=== PATIENT | female | born 1970 | race Caucasian/White ===

== ENCOUNTER → 2019-09-22 14:55 | Outpatient (CLI) | payer MEDICARE, MEDICAID, SELFPAY ==
[2019-09-22 16:21] LABS: Basophils # 0.2 K/mm3 (0-0.2); Basophils % 1.7 % (0.1-2.0); Eosinophils # 0.5 K/mm3 (0.0-0.4); Eosinophils % 4.2 % (0.1-12.0); Hematocrit 46.7 % (37.0-47.0); Hemoglobin 15.8 g/dL (12.2-16.2); Lymphocytes # 2.9 K/mm3 (0.7-4.5); Lymphocytes % 24.5 % (10-50); Mean Corpuscular HGB Conc 33.8 g/dL (31.8-35.4); Mean Corpuscular Hemoglobin 31.9 pg (27.0-31.2); Mean Corpuscular Volume 94.3 fl (81-99); Mean Platelet Volume 9.1 fl (7.4-10.4); Monocytes # 0.6 K/mm3 (0.1-1.0); Monocytes % 4.9 % (1.7-9.3); Neutrophils # 7.5 K/mm3 (1.8-7.8); Neutrophils % 64.7 % (37.0-80.0); Platelet Count 391 K/mm3 (142-424); Red Blood Count 4.95 M/mm3 (4.20-5.40); Red Cell Distribution Width 14.1 % (11.5-17.5); White Blood Count 11.6 K/mm3 (4.8-10.8)
[2019-09-22 16:23] LABS: Chloride 103 mmol/L (98-107); Potassium 3.5 mmoL/L (3.5-5.1); Sodium 138 mmol/L (136-145)
[2019-09-22 16:25] LABS: Blood Urea Nitrogen 5 mg/dl (7-17); Estimated Glomerular Filt Rate 106 ml/min (>60); GFR (African American) 129 ML/MIN (>60)
[2019-09-22 16:26] LABS: Alanine Aminotransferase 15 U/L (12-78); Albumin Level 4.3 g/dl (3.5-5.0); Albumin/Globulin Ratio 1.3 (1.1-1.8); Alkaline Phosphatase 104 U/L (38-126); Anion Gap 11.5 mEq/L (5-15); Aspartate Amino Transferase 24 U/L (14-36); Bilirubin,Total 0.4 mg/dl (0.2-1.3); Calcium 10.2 mg/dl (8.4-10.2); Carbon Dioxide 27 mmol/L (22.0-30.0); Cholesterol 307 mg/dl (140-200); Globulin 3.2 g/dL (1.3-3.2); Glucose 73 mg/dl (74-100); HDL Cholesterol 48 mg/dl (40-60); Total Protein,Serum 7.5 g/dl (6.3-8.2); Triglycerides 452 mg/dl (30-150)
[2019-09-22 16:41] LABS: Free T4 (Free Thyroxine) 0.99 ng/dl (0.78-2.19)
[2019-09-22 16:42] LABS: Chol/HDL Ratio 6.4 (1-3.5)
[2019-09-22 22:35] LABS: Thyroid Stimulating Hormone 2.05 uIU/mL (0.465-4.68)
[2019-09-24 10:00] LABS: Vitamin D 25 Hydroxy 22.1 ng/mL (30.0-100.0)
== END ==
PROVIDERS: Visit Provider Emergency Medicine
DX: R53.83 Other fatigue (principal); E78.5 Hyperlipidemia, unspecified; E55.9 Vitamin D deficiency, unspecified
CPT/HCPCS: 80053; 80061; 82652; 84439; 84443; 85025

== ENCOUNTER → 2020-12-05 18:51 | Outpatient (CLI) | payer MEDICARE, BC, SELFPAY ==
[2020-12-05 20:46] LABS: Amphetamine/Metha Screen,Urine Negative ng/ml (<1000); Barbiturates Screen,Urine Negative ng/ml (<200)
[2020-12-05 20:49] LABS: Benzodiazepines Screen,Urine Negative ng/ml (<200)
[2020-12-05 20:50] LABS: Cannabinoid Screen,Urine Negative ng/ml (<50); Cocaine Screen,Urine Negative ng/ml (<300)
[2020-12-05 20:56] LABS: Methadone Screen,Urine Negative ng/ml (<300)
[2020-12-05 20:57] LABS: Opiate Screen,Urine Negative ng/ml (<300); Phencyclidine Screen,Urine Negative ng/ml (<25)
[2020-12-06 08:11] LABS: Chloride 102 mmol/L (98-107); Sodium 139 mmol/L (136-145)
[2020-12-06 08:12] LABS: Potassium 4.3 mmoL/L (3.5-5.1)
[2020-12-06 08:12] LABS: Basophils # 0.1 K/mm3 (0-0.2); Basophils % 1.3 % (0.1-2.0); Eosinophils # 0.2 K/mm3 (0.0-0.4); Eosinophils % 1.9 % (0.1-12.0); Hemoglobin 15.5 g/dL (12.2-16.2); Lymphocytes # 3.3 K/mm3 (0.7-4.5); Lymphocytes % 30.5 % (10-50); Mean Corpuscular HGB Conc 31.6 g/dL (31.8-35.4); Mean Corpuscular Volume 95.2 fl (81-99); Mean Platelet Volume 9.6 fl (7.4-10.4); Monocytes # 0.5 K/mm3 (0.1-1.0); Neutrophils # 6.6 K/mm3 (1.8-7.8); Neutrophils % 61.3 % (37.0-80.0); Platelet Count 423 K/mm3 (142-424); Red Blood Count 5.15 M/mm3 (4.20-5.40); Red Cell Distribution Width 15.2 % (11.5-17.5); White Blood Count 10.7 K/mm3 (4.8-10.8)
[2020-12-06 08:14] LABS: Alanine Aminotransferase 19 U/L (12-78); Albumin Level 4.3 g/dl (3.5-5.0); Albumin/Globulin Ratio 1.3 (1.1-1.8); Alkaline Phosphatase 116 U/L (38-126); Anion Gap 14.3 mEq/L (5-15); Aspartate Amino Transferase 28 U/L (14-36); Bilirubin,Total 0.2 mg/dl (0.2-1.3); Blood Urea Nitrogen 8 mg/dl (7-17); Carbon Dioxide 27 mmol/L (22.0-30.0); Cholesterol 241 mg/dl (140-200); Estimated Glomerular Filt Rate 105 ml/min (>60); GFR (African American) 128 ML/MIN (>60); Globulin 3.3 g/dL (1.3-3.2); Total Protein,Serum 7.6 g/dl (6.3-8.2)
[2020-12-06 08:15] LABS: Calcium 9.6 mg/dl (8.4-10.2); Chol/HDL Ratio 5.4 (1-3.5); Glucose 96 mg/dl (74-100); HDL Cholesterol 45 mg/dl (40-60)
[2020-12-06 08:16] LABS: Triglycerides 414 mg/dl (30-150)
[2020-12-06 08:26] LABS: Direct LDL Cholesterol 126.04 mg/dL (100-129)
[2020-12-06 08:45] LABS: Thyroid Stimulating Hormone 1.68 uIU/mL (0.465-4.68)
[2020-12-13 21:28] LABS: 1,25 Dihydroxy Vitamin D 65 pg/mL (.); 1,25-Dihydroxy, Vitamin D-2 36 pg/mL (.); 1,25-Dihydroxy, Vitamin D-3 29 pg/mL (.)
== END ==
PROVIDERS: Visit Provider Emergency Medicine
DX: M54.5 Low back pain (principal); R53.83 Other fatigue; E66.9 Obesity, unspecified; Z68.27 Body mass index [BMI] 27.0-27.9, adult; Z79.899 Other long term (current) drug therapy
CPT/HCPCS: 80053; 80061; 80305; 82652; 84436; 84443; 85025

== ENCOUNTER → 2021-02-01 18:05 | Outpatient (CLI) | payer MEDICARE, BC, SELFPAY ==
[2021-02-01 19:29] LABS: Barbiturates Screen,Urine Negative ng/ml (<200)
[2021-02-01 19:30] LABS: Amphetamine/Metha Screen,Urine Positive ng/ml (<1000)
[2021-02-01 19:31] LABS: Benzodiazepines Screen,Urine Negative ng/ml (<200); Cannabinoid Screen,Urine Negative ng/ml (<50)
[2021-02-01 19:32] LABS: Cocaine Screen,Urine Negative ng/ml (<300)
[2021-02-01 19:33] LABS: Methadone Screen,Urine Negative ng/ml (<300); Opiate Screen,Urine Negative ng/ml (<300)
[2021-02-01 19:34] LABS: Phencyclidine Screen,Urine Negative ng/ml (<25)
== END ==
PROVIDERS: Visit Provider Emergency Medicine
DX: Z79.899 Other long term (current) drug therapy (principal)
CPT/HCPCS: 80305

== ENCOUNTER → 2022-07-12 11:00 | Outpatient (CLI) | payer MEDICARE, BC, SELFPAY ==
[2022-07-12 19:38] LABS: Amphetamine/Metha Screen,Urine Negative ng/ml (<1000)
[2022-07-12 19:39] LABS: Barbiturates Screen,Urine Negative ng/ml (<200); Benzodiazepines Screen,Urine Negative ng/ml (<200)
[2022-07-12 19:40] LABS: Cannabinoid Screen,Urine Negative ng/ml (<50); Cocaine Screen,Urine Negative ng/ml (<300)
[2022-07-12 19:41] LABS: Methadone Screen,Urine Negative ng/ml (<300)
[2022-07-12 19:42] LABS: Opiate Screen,Urine Negative ng/ml (<300); Phencyclidine Screen,Urine Negative ng/ml (<25)
== END ==
PROVIDERS: PCP Nurse Practitioner Family; Visit Provider Nurse Practitioner Family
DX: G89.4 Chronic pain syndrome (principal)
CPT/HCPCS: 80305

== ENCOUNTER 2023-05-21 20:49 | Outpatient (CLI) | payer MEDICARE, BC, SELFPAY ==
[2023-05-21 20:39] LABS: Amphetamine/Metha Screen,Urine Negative ng/ml (<1000)
[2023-05-21 20:40] LABS: Barbiturates Screen,Urine Negative ng/ml (<200)
[2023-05-21 20:41] LABS: Benzodiazepines Screen,Urine Negative ng/ml (<200)
[2023-05-21 20:43] LABS: Cannabinoid Screen,Urine Negative ng/ml (<50); Cocaine Screen,Urine Negative ng/ml (<300)
[2023-05-21 20:44] LABS: Opiate Screen,Urine Negative ng/ml (<300); Phencyclidine Screen,Urine Negative ng/ml (<25)
[2023-05-21 20:52] LABS: Methadone Screen,Urine Negative ng/ml (<300)
[2023-05-26 14:34] LABS: Alprazolam Negative (Cutoff=100); Benzodiazepines Positive ng/mL (Cutoff=100); Clonazepam Positive (.); Clonazepam Confirm 375 ng/mL (Cutoff=100); Flurazepam Negative (Cutoff=100); Lorazepam Negative (Cutoff=100); Midazolam Negative (Cutoff=100); Temazepam Negative (Cutoff=100); Triazolam Negative (Cutoff=100)
== END 2023-05-21 23:59 ==
LOC: LAB.DROPOF 20:50
PROVIDERS: PCP Nurse Practitioner Family; Visit Provider Nurse Practitioner Family
DX: Z79.899 Other long term (current) drug therapy (principal)
CPT/HCPCS: 80307; 80346